=== PATIENT | male | born 1950 | race Caucasian/White ===

== ENCOUNTER 2024-12-31 09:00 | Outpatient (CLI) | payer OTHER, SELFPAY ==
[2024-12-31 09:29] LABS: Basophils # 0.1 10^3/uL (0.0-0.1); Basophils % 1.2 %; Eosinophils # 0.2 10^3/uL (0.0-0.8); Eosinophils % 2.8 %; Hematocrit 44.8 % (37-53); Lymphocytes # 3.5 10^3/uL (0.8-4.8); Lymphocytes % 46.4 %; Mean Corpuscular Hemoglobin 31.8 pg (27-33); Mean Corpuscular Volume 96.3 fl (82-101); Mean Platelet Volume 8.3 fL (7.4-10.4); Monocytes # 0.6 10^3/uL (0.2-0.9); Monocytes % 7.5 %; Neutrophils # 3.13 10^3/uL (1.8-7.7); Neutrophils % 41.8 %; Nucleated Red Blood Cells % 0 %; Platelet Count 171 10^3/cmm (157-399); Red Blood Count 4.65 10^6/uL (3.85-5.65); White Blood Count 7.48 10^3/uL (3.29-11.43)
[2024-12-31 09:47] LABS: Anion Gap 16.4 (5-19); Blood Urea Nitrogen 23 mg/dL (8-23); Calcium 9.5 mg/dL (8.5-10.5); Carbon Dioxide 25 mmol/L (22-29); Chloride 103 mmol/L (98-107); Glucose 117 mg/dL (65-115); Phosphorus 3.5 mg/dL (2.5-4.5); Potassium 4.4 mmol/L (3.5-5.1); Sodium 140 mmol/L (136-145)
[2024-12-31 09:48] LABS: Calcium 9.6 mg/dL (8.5-10.5)
[2024-12-31 09:55] LABS: Parathyroid Hormone 58.5 pg/mL (15-65)
[2024-12-31 10:17] LABS: Creatinine Urine, Random 132 mg/dL (39-259); Microalbumin Random Urine 8 ug/dL (0-20)
[2024-12-31 10:18] LABS: Microalbum Creatinine Ratio Ur 61 mg/dL (0-20)
== END 2024-12-31 09:01 | disposition home or self-care (01) ==
LOC: LAB 09:05
PROVIDERS: PCP Nurse Practitioner Family; Visit Provider Registered Nurse
DX: N18.32 Chronic kidney disease, stage 3b (principal); I12.9 Hypertensive chronic kidney disease with stage 1 through stage 4 chronic kidney disease, or unspecified chronic kidney disease
CPT/HCPCS: 36415; 80069; 82044; 82310; 83970; 85025

== ENCOUNTER 2025-09-02 12:41 | Outpatient (CLI) | payer OTHER, SELFPAY ==
--- NOTE | 2025-09-02 12:45 | XR_ITS ---
WS: [id number] Left ankle, 3 views, 09/02/2025 Clinical Data: Left ankle pain Comparison: None. Findings: No fractures or dislocations are seen. The ankle mortise is normal. The talus and calcaneus are unremarkable. No soft tissue swelling over the medial or lateral malleolus is seen. There is a plantar spur and an Achilles spur. XR/XR ankle LT min 3V* [id number] Impression: Negative left ankle.
== END 2025-09-02 12:42 | disposition home or self-care (01) ==
LOC: RAD 12:43
PROVIDERS: PCP Family Medicine Geriatric Medicine; Visit Provider Registered Nurse Neonatal Intensive Care
DX: M25.572 Pain in left ankle and joints of left foot (principal)
CPT/HCPCS: 73610